=== PATIENT | male | born 1990 ===

== ENCOUNTER 2019-07-06 14:05 | Emergency (ER) | payer BC ==
[2019-07-06 16:17] VITALS: BP 118/74
--- NOTE | 2019-07-06 16:18 | UC ---
Elbow Pain - HPI Summary HPI Summary: 28 yo male presents with RIGHT elbow pain. He tells me that yesterday he slipped and landed with his right arm extended and supinated. Had some elbow pain, but wasn't bad. Today pain is improved, but his friends convinced him to get it checked out. He took ibuprofen earlier and feels better. Denies radiation of pain or numbness/tingling. FROM. - History of Current Complaint Chief Complaint: UCUpperExtremity Stated Complaint: ARM INJURY Time Seen by Provider: 07/06/19 16:18 Hx Obtained From: Patient Severity Initially: Mild Severity Currently: Mild Pain Intensity: 4 Pain Scale Used: 0-10 Numeric - Allergies/Home Medications Allergies/Adverse Reactions: Allergies Allergy/AdvReac Type Severity Reaction Status Date / Time No Known Allergies Allergy Verified 07/06/19 16:17 Home Medications: Home Medications NK [No Home Medications Reported] 07/06/19 [History Confirmed 07/06/19] PMH/Surg Hx/FS Hx/Imm Hx - Additional Past Medical History Additional PMH: None - Surgical History Surgical History: None - Family History Known Family History: Positive: None - Social History Lives: With Family Alcohol Use: Occasionally Substance Use Type: None Smoking Status (MU): Light Every Day Tobacco Smoker Review of Systems All Other Systems Reviewed And Are Negative: No Constitutional: Positive: Negative Skin: Positive: Negative Respiratory: Positive: Negative Cardiovascular: Positive: Negative Neurovascular: Positive: Negative Musculoskeletal: Positive: Other: - Right elbow pain Neurological: Positive: Negative Psychological: Positive: Negative Physical Exam - Summary Physical Exam Summary: GENERAL: NAD. WDWN. No pain distress. SKIN: No rashes, sores, lesions, or open wounds. CHEST: No accessory muscle use. Breathing comfortably and in no distress. CV: Pulses intact radial and ulnar. Cap refill <2seconds MSK: RIGHT ELBOW: Mild TTP about lateral aspect without point tenderness. FROM. Strength 5/5 including experimental mechanic electrical strength. No edema or obvious bony deformities. NEURO: Alert. Sensations intact hand and all fingers. PSYCH: Age appropriate behavior. Triage Information Reviewed: Yes Vital Signs: Initial Vital Signs Temp 98.8 F 07/06/19 16:13 Pulse 81 07/06/19 16:13 Resp 20 07/06/19 16:13 BP 118/74 07/06/19 16:13 Pulse Ox 97 02/04/20 16:13 Vital Signs Reviewed: Yes Diagnostics - Radiology Elbow XR Radiology Interpretation Completed By: Radiologist Summary of Radiographic Findings: IMPRESSION: No displaced fracture. Consider repeat imaging in 7-10 days in the context of a questionable joint effusion. Elbow Pain Course/Dx - Course Course Of Treatment: XR as above. Suspect elbow sprain. He has FROM without pain. Advised RICE and continue ibuprofen as directed. Recheck if symptoms do not continue to improve - Differential Dx/Diagnosis Provider Diagnosis: Elbow sprain Discharge ED - Sign-Out/Discharge Documenting (check all that apply): Patient Departure All imaging exams completed and their final reports reviewed: Yes - Discharge Plan Condition: Stable Disposition: HOME Patient Education Materials: Elbow Sprain (ED) Referrals: No Primary Care Phys,NOPCP [Primary Care Provider] - Additional Instructions: If you develop a fever, shortness of breath, chest pain, new or worsening symptoms - please call your PCP or go to the ED immediately. Your X-ray is normal today. I recommend that you rest, ice, and elevate your elbow to reduce pain and swelling May take tylenol/ibuprofen as directed for discomfort. If your symptoms do not improve within 1 week - please be rechecked - Billing Disposition and Condition Condition: STABLE Disposition: Home
== END 2019-07-06 16:57 | disposition home or self-care (01) ==
LOC: UCEAST 14:05
DX: S53.401A Unspecified sprain of right elbow, initial encounter (principal); F17.290 Nicotine dependence, other tobacco product, uncomplicated; W18.40XA Slipping, tripping and stumbling without falling, unspecified, initial encounter; Y92.9 Unspecified place or not applicable
CPT/HCPCS: 99201; G0463